=== PATIENT | male | born 1990 | race Caucasian/White ===

== ENCOUNTER 2017-02-06 08:41 | Emergency (ER) | payer SELFPAY ==
[~2017-02-06] VITALS: Ht 160 cm; Wt 76.2 kg
--- NOTE | ~2017-02-06 | EKG ---
PATIENT: EMMANUELLE ALAS UNIT #: [id number] Ventricular Rate: 113 BPM Atrial Rate: 113 BPM P-R Interval: 152 ms QRS Duration: 74 ms Q-T Interval: 324 ms QTC Calculation(Bezet): 444 ms P [place]: 20 degrees Calculated R [place]: 47 degrees Calculated T [place]: -4 degrees Diagnosis Line: Sinus tachycardia Diagnosis Line: Otherwise normal ECG Diagnosis Line: When compared with ECG of 19-APR-2016 09:20, Diagnosis Line: Non-specific change in ST segment in Inferior Diagnosis Line: leads Diagnosis Line: Confirmed by TRACIE SEXTON MD ([id number]) on 02/07/2017 Diagnosis Line: 3:04:13 PM INTERPRETING MD: CARLIE MONTANEZ
--- NOTE | ~2017-02-06 | CR72 ---
[facility] A Service of [facility] RADIOLOGY TEXT RESULTS PATIENT: EMMANUELLE ALAS LOCATION: [facility] : 86 UNIT #: [id number] AGE: [address]: Fany Rosario APRN SEX: M ORDER DR: [id number] [facility]. [place], [place] [address] [id number] MR#: [id number] Acc #: [id number] NAME: EMMANUELLE ALAS : 1990 SEX: M STUDY DATE/TIME: 02/06/2017 9:45 UNIT: [facility] ROOM: STUDY DESCRIPTION: CR Chest Single View Portable Attending Physician: Fany Rosario A.P.R.N. Ordering Physician: [facility] MEDICAL IMAGING REPORT This report is preliminary unless electronic signature is present EXAM Portable chest HISTORY Dizziness. Cough. Weakness. Shortness of breath. Symptoms onset today. TECHNIQUE Single view of the chest was obtained. COMPARISON STUDIES 12/11/2015. FINDINGS A single AP portable view of the chest shows both lungs to be clear. The heart is normal in size. The mediastinal contour is normal. No significant bone abnormalities are seen. IMPRESSION Normal portable chest. Dictated by... Martín Denson M.D. THIS IS AN ELECTRONICALLY VERIFIED REPORT Martín Denson M.D. at 02/09/2017 7:22 AM RLF/pcl TD: 02/07/2017 13:34 JOB #: [id number] [facility] A Service of [facility] RADIOLOGY TEXT RESULTS PATIENT: EMMANUELLE ALAS LOCATION: [facility] : 86 UNIT #: [id number] AGE: [address]: Fany Rosario APRN SEX: M ORDER DR: MEDICAL IMAGING REPORT Page 1 of 1 COPY
[~2017-02-06 08:41] MED LIST: ALBUTEROL17 GM INH; AMOXICILLIN500 M1 PO; BACLOFEN10 MG PO; ELIMITE60 GM TOP; FLEXERIL10 MG PO; IBUPROFEN800 MG PO; KEFLEX250 M1; KEFLEX500 MG PO; LITHIUM PO; MEDROL4 MG/DOSE- PO; MIRALAX PO; MOBIC PO; MULTI-VITAMIN1 EAC1 PO; NO MEDICATIONS; PHENERGAN25 M1 PO; PREDNISONE PO; PRILOSEC PO; ROBAXIN 750750 M1 PO; ROBAXIN500 MG PO; SLEEP AID50 MG PO; ULTRAM PO; VOLTAREN50 MG PO; VOLTAREN75 MG PO; ZITHROMAX PO
[2017-02-06 09:27] LABS: BASOPHIL# 0.1 X10e3 (0-0.3); BASOPHIL% 0.7 % (0-2.5); EOSINOPHIL# 0.2 X10e3 (0-0.7); EOSINOPHIL% 1.6 % (0.0-7.0); HEMATOCRIT 42.5 % (38.0-50.0); HEMOGLOBIN 14.4 gm/dL (13.0-16.0); LYMPHOCYTE# 3.4 X10e3 (1.0-3.5); LYMPHOCYTE% 31.1 % (17.0-45.0); MEAN CELL VOLUME 86.8 FL (83-96); MEAN CORPUSCULAR HEMOGLOBIN 29.4 PG (28-34); MEAN CORPUSCULAR HGB CONC 33.8 g/dL (30-36); MEAN PLATELET VOLUME 8.5 FL (6.5-11.5); MONOCYTE# 1.1 X10e3 (0-1.0); NEUTROPHIL# 6.2 X10e3 (1.5-7.1); NEUTROPHIL% 56.6 % (40-75); PLATELET COUNT 239 X10e3 (140-420); RED BLOOD COUNT 4.89 X10e (3.90-5.60); RED CELL DISTRIBUTION WIDTH 12.8 % (11.0-15.5); WHITE BLOOD COUNT 10.9 X10e3 (4.0-10.5)
[2017-02-06 09:29] LABS: DIFF IND NO
[2017-02-06 10:05] LABS: ALBUMIN SERUM 4.8 g/dL (3.5-5.0); BILIRUBIN, DIRECT 0.1 mg/dL (0.0-0.2); BILIRUBIN,INDIRECT 0.9 mg/dL (0.0-0.9); BUN/CREATININE RATIO 14.16; CALCIUM SERUM 9.5 mg/dL (8.4-10.2); CREATININE SERUM 1.2 mg/dL (0.6-1.4); GLOM FILT RATE Estimated 81.8 mL/min (>60); POTASSIUM 3.4 mmol/L (3.5-5.1); PROTEIN TOTAL SERUM 8.2 g/dL (6.0-8.3)
[2017-02-06 11:32] LABS: POC - TROPONIN <0.05 ng/mL (<=0.05)
[2017-02-06 11:48] LABS: AMPHETAMINE POS (NEG); BARBITURATES NEG (NEG); BENZODIAZEPINES NEG (NEG); COCAINE NEG (NEG); MARIJUANA NEG (NEG); OPIATES NEG (NEG); TRICYCLIC ANTIDEPRESSANTS NEG (NEG); U METHADONE NEG (NEG)
== END 2017-02-06 12:05 | disposition home or self-care (01) ==
LOC: CED 08:41
PROVIDERS: Nurse Practitioner
DX: R42 Dizziness and giddiness (principal); F11.10 Opioid abuse, uncomplicated; Z86.19 Personal history of other infectious and parasitic diseases; F17.210 Nicotine dependence, cigarettes, uncomplicated; Z88.1 Allergy status to other antibiotic agents
CPT/HCPCS: 36415; 71010; 80048; 80076; 80307; 82553; 84484; 85025; 93005; 96360; 99284